=== PATIENT | female | born 1945 | race Caucasian/White ===

== ENCOUNTER → 2017-01-12 | Outpatient (CLI) | payer MEDICARE, BC ==
[2017-01-12 08:45] LABS: EKG EKG PERFORMED
[2017-01-12 10:04] LABS: Appearance,Urine Clear (Clear); Bilirubin,Urine Negative (Negative); Glucose,Urine (UA) Negative (Negative); Ketones,Urine Negative (Negative); Leukocyte Esterase,Urine Negative (Negative); Nitrite,Urine Negative (Negative); PH, Urine 6.5 (5.0-8.0); Protein,Urine Negative (Negative); Specific Gravity,Urine 1.005 (1.001-1.035); UA Billing (MACRO vs. MICRO) CHEM; Urobilinogen,Urine <2.0 mg/dL (<2.0)
[2017-01-12 10:17] LABS: Aty Lym Flag Slight; CH 30.6; CHCM 32.2; HCT 41.2 % (34.0-46.0); HDW 2.47; HGB 13.3 gm/dL (11.4-16.0); MCH 30.9 pg (25.0-35.0); MCHC 32.3 g/dL (31.0-37.0); MCV 95.6 fL (80.0-100.0); Mean Platelet Volume 6.8; RBC 4.31 m/uL (3.80-5.40); RDW 13.3 % (11.5-15.5); WBC 4.6 k/uL (3.8-10.6); WBC (Perox) 5.26
[2017-01-12 10:32] LABS: INR 1.1 (<1.1); Partial Thromboplastin Time 23.4 sec (22.0-30.0); Prothrombin Time 10.7 sec (9.0-12.0)
[2017-01-12 10:40] LABS: ALT 28 U/L (9-52); AST 20 U/L (14-36); Alkaline Phosphatase 56 U/L (38-126); Anion Gap 12 mmol/L; Blood Urea Nitrogen 17 mg/dL (7-17); Calcium 9.5 mg/dL (8.4-10.2); Carbon Dioxide 28 mmol/L (22-30); Chloride 104 mmol/L (98-107); Glucose 84 mg/dL (74-99); Non-African American GFR(MDRD) >60 (>60 ml/min/1.73 sqM); Potassium 4.7 mmol/L (3.5-5.1); Sodium 144 mmol/L (137-145); Total Bilirubin 0.5 mg/dL (0.2-1.3); Total Protein 7.1 g/dL (6.3-8.2)
[2017-01-12 11:41] LABS: Add Differential Manual Differential
[2017-01-12 11:42] LABS: Nucleated Red Blood Cells 0 /100 WBC (0-0); Total Cells Counted 100
[2017-01-12 11:43] LABS: Manual Review Performed; RBC Morphology Normal
== END ==
LOC: LABPAT 08:34
PROVIDERS: ATTEND Orthopaedic Surgery
DX: Z01.810 Encounter for preprocedural cardiovascular examination (principal); Z01.812 Encounter for preprocedural laboratory examination
CPT/HCPCS: 80053; 81003; 85025; 85610; 85730; 87070; 93005

== ENCOUNTER 2017-01-27 07:25 | Inpatient (IN) | payer MEDICARE, BC ==
[2017-01-21 14:30] VITALS: BMI 30.2
[~2017-01-27 07:25] MED LIST: ACETAMINOPHEN TAB 500 MG TAB PO ONE; DEXAMETHASONE SOD PHOSPHATE 10 MG/ML 1 ML VIAL IV ONE; HYDROmorphone 1 MG/ML 1 ML SYRINGE IVP PRN; MELOXICAM 7.5 MG TAB PO ONE; MIDAZOLAM 2 MG/2 ML VIAL IV PRN; ONDANSETRON 4 MG/2 ML VIAL IVP ONE; TRANEXAMIC ACID 1,000 MG in SODIUM CHLORIDE 0.9% 100 ML IVPB ONE; ceFAZolin 2 GM in SODIUM CHLORIDE 0.9% 100 ML IVPB ONE
[2017-01-27] MEDS: LACTATED RINGERS 1,000 ML IV SCH ×2 (08:02→23:54)
[2017-01-27] MEDS ORDERED: LIDOCAINE 1% 20 ML VIAL (10MG/ML) FOR IV START INTRADERMA ONE (08:02)
[2017-01-27] MEDS ORDERED: fentaNYL (PF) 50 MCG/ML 2 ML AMP IV ONE (08:22)
[2017-01-27] MEDS ORDERED: ROPIVACAINE 1,100 MG, SODIUM CHLORIDE 0.9% 330 ML MISCELLANE PRN ×2 (08:46)
--- NOTE | 2017-01-27 08:49 | P.ONQ ---
Anesthesiology Proc Note - PNB - Peripheral Nerve Block Performed Left Adductor Canal Infusion Time Out Performed: Yes Indication: Acute Post-Operative Pain, Analgesia Sedation Type: Sedate with meaningful contact maintained Preparation: Sterile Prep Position: Supine Catheter Depth at Skin (cm): 8 Catheter: Indwelling Needle Types: On-Q Needle Size: 100mm (4") Needle Gauge: 20 Technique: Ultrasound Injectate: 0.5% Ropivacaine (see comment for volume) (20 cc) Blood Aspirated: No Pain Paresthesia on Injection Noted: No Resistance on Injection: Normal Events: Uneventful and Well Tolerated
[2017-01-27] MEDS ORDERED: ROPIVACAINE 246.25 MG, EPINEPHrine 0.5 MG, KETOROLAC 30 MG, cloNIDine HCL/PF 80 MCG, WA... MISCELLANE ONE ×5 (09:13)
[2017-01-27] MEDS ORDERED: fentaNYL (PF) 50 MCG/ML 2 ML AMP ONE (09:42)
[2017-01-27] MEDS ORDERED: MIDAZOLAM 2 MG/2 ML VIAL ONE (09:42)
[2017-01-27] MEDS ORDERED: ePHEDrine 50 MG/ML 1 ML AMP ONE (09:42)
[2017-01-27] MEDS ORDERED: GLYCOPYRROLATE 0.2 MG/ML 2 ML VIAL ONE (09:42)
[2017-01-27] MEDS ORDERED: SUCCINYLCHOLINE CHLORIDE 100 MG/5 ML SYR IV ONE (09:42)
[2017-01-27] MEDS ORDERED: NEOSTIGMINE 1 MG/ML 10 ML VIAL ONE (09:42)
[2017-01-27] MEDS ORDERED: LIDOCAINE 1% INJ 10MG/ML (20 ML MDV) ONE (09:42)
[2017-01-27] MEDS ORDERED: ONDANSETRON 4 MG/2 ML VIAL ONE (09:42)
[2017-01-27] MEDS ORDERED: ROCURONIUM BROMIDE 10 MG/ML 10 ML VIAL IV ONE (09:42)
[2017-01-27] MEDS ORDERED: PROPOFOL 10 MG/ML 20 ML VIAL IV ONE (09:42)
[2017-01-27] MEDS ORDERED: ceFAZolin 3,000 MG in SODIUM CHLORIDE 0.9% IRRIGATIO 3,000 ML IRRIGATION ONE (10:02)
[2017-01-27] MEDS ORDERED: LACTATED RINGERS 1,000 ML IV ONE (10:30)
[2017-01-27] MEDS ORDERED: NA PHOS,M-B/NA PHOS,DI-BA 133 ML ENEMA RECTAL PRN (11:29)
[2017-01-27] MEDS ORDERED: hydrOXYzine PAMOATE 25 MG CAP PO PRN (11:29)
[2017-01-27] MEDS ORDERED: HYDROmorphone 1 MG/ML 1 ML SYRINGE IVP PRN ×3 (11:29)
[2017-01-27] MEDS ORDERED: NALOXONE 0.4 MG/ML 1 ML VIAL IV PRN (11:29)
[2017-01-27] MEDS ORDERED: MAGNESIUM HYDROXIDE 2,400 MG/10 ML CUP PO PRN (11:29)
[2017-01-27] MEDS ORDERED: ONDANSETRON 4 MG/2 ML VIAL IVP PRN (11:29)
[2017-01-27] MEDS ORDERED: BISACODYL 10 MG SUPP RECTAL PRN (11:29)
[2017-01-27] MEDS ORDERED: DIAZEPAM 5 MG TAB PO PRN ×2 (11:29)
[2017-01-27] MEDS ORDERED: ROPIVACAINE 5 MG/ML 30 ML VIAL MISCELLANE ONE (11:51)
--- NOTE | 2017-01-27 12:33 | P.OP ---
Date of Procedure: 01/27/17 Preoperative Diagnosis: Severe osteoarthritis left knee Postoperative Diagnosis: Severe osteoarthritis left knee Procedure(s) Performed: Left total knee arthroplasty Implants: Gu[employer]án [employer] Oxinium femoral component size 4, left Guzmán [employer]hew Cindy II left nonporous tibial baseplate size 4 [employer]hew size 11 mm Legion XLPE high flexion articular insert, size 3-4 [employer] Cindy II resurfacing patellar component, 29 mm All components were cemented using Anish bone cement.. The articulation is ceramic on polyethylene. Anesthesia: spinal Surgeon: Domingo Gerardo Clerical Stock Inspector #1: Batsheva Hinojosa Clerical Stock Inspector #2: Cynthia Doan Estimated Blood Loss (ml): 125 Pathology: other (Bone and cartilage) Condition: stable Disposition: PACU Indications for Procedure: After failure of conservative treatment we discussed the surgical and nonsurgical treatment options at length. Patient wishes to proceed with a total knee arthroplasty. Complications specific to this procedure were discussed at length, including but not limited to infection, bleeding, stiffness , and nerve injury. Patient is aware of all these complications and informed consent was obtained Operative Findings: The operative findings are consistent with severe osteoarthritis the left knee Description of Procedure: Patient was seen in the preoperative area consent was reviewed and operative site was marked with a skin marker. An adductor canal pain catheter was placed by anesthesia in the preoperative area. Patient was then brought to the operating room and given preoperative antibiotics intravenously. A spinal anesthetic was administered by the anesthesia department. A tourniquet was placed on the upper thigh and the lower extremity was prepped and draped in usual sterile fashion. A gram of transexamic acid was given. A universal timeout was then performed which confirmed the patient's name, surgical site, ALLERGIES, and consent. The lower extremity was then exsanguinated and tourniquet was inflated to 250 mmHg. A standard and anterior midline approach to the knee was performed. The skin and subcutaneous tissue was dissected down to the patellar tendon. A medial parapatellar arthrotomy was then performed. The knee was then extended, the patellar was everted, and the knee was again flexed. Anterior horns of both menisci were excised, and a release was performed to the posterior medial aspect of the knee. On gross visual inspection, there was complete loss of articular cartilage in the medial and patellofemoral joint spaces. There was also significant cartilage damage in the lateral compartment. There were multiple periarticular osteophytes which were then removed with a Ronguer. The femoral canal was then opened with the appropriate drill, and the intramedullary femoral cutting guide was then placed and set for 4 of valgus. The distal femoral cutting block was then pinned in place, and the distal femur was then cut. The cutting block was then removed and the cut was checked for flatness. Next, the sizing guide was then placed and set for 3 external rotation based off of the epicondylar axis and Whitesides line. After the femur was sized, the appropriate 4-in-1 cutting block was then pinned in place. The anterior condyles were cut without notching. The posterior and chamfer cuts were performed while protecting the collateral ligaments. The cutting block was then removed, and the femoral canal was plugged with autologous bone. Attention was then directed to the tibia. The remaining ACL was removed with a Ronguer, and the tibia was then gently subluxed forward with a large bent knee retractor. Any remaining menisci was excised. The posterior lateral corner was cauterized in order to cauterize the lateral geniculate artery. The extra medullary tibial cutting guide was then placed, set for the appropriate rotation , slope, and depth of resection. The proximal tibia cutting guide was then pinned in place. Proximal tibia was then cut and sized. Next trials were then placed with the appropriate-sized insert. The knee was able to fully extend and flex to 130 and was stable throughout all range of motion. The knee was then extended, patella everted. Patella was then measured, and then using an osteotomy guide, the patella was cut at the appropriate level. The patella was then measured and drilled and the patella trial was then placed. The knee was then taken through range of motion with the patella trial and the patella tracked normally. The knee was then extended patella trial was then removed and the patella was everted. Knee was then flexed and lug holes were drilled through the femoral trial and the femoral trial was then removed. The tibial was then exposed, and the tibial broach guide was then pinned in place after it was set for the appropriate rotation to allow for the most coverage without overhang. The tibia was then reamed and broached. The cut surfaces of bone were then irrigated with pulsatile lavage. The posterior structures were injected with the ropivacaine solution. The knee was also irrigated with Irrisept solution. The components were then opened, the cement was mixed, and the components were then cemented in place. The cement was allowed to harden with the knee in full extension. While the cement was hardening, the remaining soft tissues were then injected with a ropivacaine solution, which consisted of 246.25 mg of ropivacaine, 0.5 mg of epinephrine, 30 mg of Toradol, 80 g of clonidine, and 48.45 mL of sterile water, for a total of 100 mL of fluid injected. After the cemented hardened. The tourniquet was released, and hemostasis was obtained. A second gram of transexamic acid was given. The knee was again irrigated. The knee was again taken through range of motion and found to be stable throughout all range of motion of 0-130 , and the patella tracked normally. The fascia was then closed with #2 strata fix suture. The subcutaneous tissue was closed with 3-0 Vicryl and 3-0 strata fix. Dermabond tape was used for the skin and placed with the knee in flexion. The patient was placed in a sterile dressing. Patient was then transferred to recovery room in stable condition. The recreational assistant COLEEN Dacosta was required due the complexity surgery and the need for a skilled operating room surgical technician. She assisted in positioning, draping , retraction, and closure of the wound.
--- NOTE | 2017-01-27 12:43 | XR ---
Limited left knee HISTORY: Status post left knee arthroplasty 2 views of the left knee No comparisons Bone mineralization mildly reduced. Patient is status post left knee arthroplasty. There is anatomic alignment. Lucency in the soft tissues compatible with postop state. IMPRESSION: Orthopedic follow-up
[2017-01-27] MEDS: ceFAZolin 2 GM in SODIUM CHLORIDE 0.9% 100 ML IVPB SCH ×2 (15:44→23:37)
[2017-01-27] MEDS: SODIUM CHLORIDE 0.9% 1,000 ML IV SCH (15:48)
[2017-01-27] MEDS: SENNOSIDES-DOCUSATE SODIUM 1 EACH TAB PO SCH (21:06)
[2017-01-27] MEDS: ASPIRIN 325 MG TAB PO SCH (21:06)
[2017-01-27] MEDS: HYDROcodone/APAP 5-325MG 1 EACH TAB PO PRN (23:36)
[2017-01-28] MEDS: SODIUM CHLORIDE 0.9% 1,000 ML IV SCH ×2 (03:50→17:42)
[2017-01-28 07:51] LABS: Basophils % (A) 0 %; CH 30.8; CHCM 32.8; Eosinophils % (A) 1 %; HCT 30.9 % (34.0-46.0); HDW 2.52; Luc # (Auto) 0.11; Luc % (Auto) 2; Lymphocytes # (A) 0.4 k/uL (1.0-4.8); Lymphocytes % (A) 7 %; MCH 31.6 pg (25.0-35.0); MCHC 33.5 g/dL (31.0-37.0); MCV 94.3 fL (80.0-100.0); Mean Platelet Volume 6.6; Monocytes # (A) 0.6 k/uL (0-1.0); Monocytes % (A) 11 %; Neutrophils # (A) 4.2 k/uL (1.3-7.7); Neutrophils % (A) 79 %; RBC 3.27 m/uL (3.80-5.40); RDW 13.3 % (11.5-15.5); WBC 5.3 k/uL (3.8-10.6); WBC (Perox) 5.35
--- NOTE | 2017-01-28 07:55 | P.PN ---
Progress Note - Text 0722 anesthesia POD 1. Patient is status post left TKR under spinal anesthesia with a left adductor canal catheter placed for postoperative pain relief. With ropivacaine 0.2% running at 8 mL per hour the patient reports a VAS of (0, 2) anteriorly with slightly more discomfort in the posterior aspect of the knee. Catheter site is clean and dry and the dressing is intact.
--- NOTE | 2017-01-28 07:58 | P.PN ---
Subjective Principal diagnosis: Status post left total knee arthroplasty This is a pleasant 71-year-old female who is status post left total knee arthroplasty. Today's postoperative day #1. Patient is seen and evaluated at bedside with Dr. Domingo Gerardo. She complains of posterior knee pain. She otherwise has no other complaints this time. She has not been up with physical therapy at this morning. Objective - Vital Signs Vital signs: Vital Signs Temp 97.6 F 01/28/17 02:07 Pulse 76 01/28/17 00:00 Resp 16 01/28/17 02:07 BP 137/67 01/27/17 23:00 Pulse Ox 93 L 01/28/17 02:07 Intake & Output 01/27/17 01/28/17 01/28/17 18:59 06:59 18:59 Intake Total 1601 940 Output Total 125 Balance 1476 940 Weight 72.575 kg Intake: IV 1601 Intake, IV Titration 940 Amount Sodium Chloride 0.9% 1, 840 000 ml @ 70 mls/hr IV . [id number] THIAGO Rx#:[id number] ceFAZolin 2 gm In Sodium 100 Chloride 0.9% 100 ml @ 100 mls/hr IVPB Q8HR THIAGO Rx#:[id number] Output: Estimated Blood Loss 125 Other: # Voids 1 - Exam The patient does not appear in acute distress. Alert and orientated 3. Dressing is clean dry and intact. Incision appears fine with no erythema or active drainage. Calf is soft and nontender. Good foot and ankle motion without difficulty. Sensation and circulatory status is intact. Assessment and Plan (1) Primary osteoarthritis of left knee Status: Acute (2) Status post left knee replacement Status: Acute Plan: 1. Continue with routine postoperative care. 2. Anticoagulation with aspirin. 3. Physical therapy and CPM today. 4. Appreciate input from medicine. 5. Anticipate discharge to home with home care likely tomorrow.
[2017-01-28 08:01] LABS: HGB 10.3 gm/dL (11.4-16.0)
[2017-01-28] MEDS ORDERED: ACETAMINOPHEN TAB 500 MG TAB PO PRN (08:41)
[2017-01-28] MEDS ORDERED: ACETAMINOPHEN TAB 325 MG TAB PO PRN (08:44)
[2017-01-28] MEDS: HYDROcodone/APAP 5-325MG 1 EACH TAB PO PRN ×5 (09:32→19:53)
[2017-01-28] MEDS: ASPIRIN 325 MG TAB PO SCH ×2 (09:32→19:53)
[2017-01-28] MEDS: MELOXICAM 7.5 MG TAB PO SCH (09:33)
[2017-01-28] MEDS ORDERED: ALBUTEROL NEBULIZED 2.5 MG/3 ML INHALATION PRN (12:00)
[2017-01-28] MEDS ORDERED: CYANOCOBALAMIN 500 MCG TAB PO SCH (12:30)
--- NOTE | 2017-01-28 16:32 | P.CONS ---
History of Present Illness - Reason for Consult Consult date: 01/28/17 Medical management - Chief Complaint Left knee osteoarthritis - History of Present Illness Patient is admitted to the hospital for elective total left knee arthroplasty. She has a past medical history noted below. I was asked to see her for medical management. She does not have any specific concerns or complaints. Pain is well controlled. She was up earlier with physical therapy was no difficulty. Review of Systems Review of system: 14 points review of systems were obtained and were negative except to what were mentioned in the HPI. Past Medical History Past Medical History: Asthma, Hypertension Additional Past Medical History / Comment(s): Anemia,nonHodgkin's lymphoma, steroid Nov 2016 History of Any Multi-Drug Resistant Organisms: None Reported Past Surgical History: Back Surgery, Hysterectomy, Orthopedic Surgery Additional Past Surgical History / Comment(s): recent EGD/colonoscopy, right shoulder repair Past Anesthesia/Blood Transfusion Reactions: No Reported Reaction Additional Past Anesthesia/Blood Transfusion Reaction / Comm: no hx blood transfusion Past Psychological History: No Psychological Hx Reported Smoking Status: Never smoker Past Alcohol Use History: None Reported Past Drug Use History: None Reported - Past Family History Father Additional Family Medical History / Comment(s): emphysema Mother Family Medical History: No Reported History Medications and Allergies Home Medications Medication Instructions Recorded Confirmed Type Albuterol Inhaler [Ventolin 2 puff INHALATION RT-Q6H PRN 05/23/15 01/27/17 History Inhaler] Atenolol [Tenormin] 25 mg PO QAM 06/22/15 01/27/17 History Cyanocobalamin [Vitamin B-12] 500 mcg PO DAILY@1200 06/22/15 01/27/17 History Acetaminophen [Tylenol] 1,000 mg PO Q6H PRN 01/21/17 01/27/17 History Aspirin 81 mg PO DAILY 01/21/17 01/27/17 History Multivitamins, Thera [Multivitamin 1 tab PO DAILY 01/21/17 01/27/17 History (formulary)] Rituxan Infusion 1 applicate IV Q90D 01/21/17 01/27/17 History Allergies Allergy/AdvReac Type Severity Reaction Status Date / Time No Known Allergies Allergy Verified 01/27/17 07:52 Physical Exam Vitals: Vital Signs Temp Pulse Resp BP Pulse Ox 01/28/17 15:00 98.1 F 86 16 141/67 97 01/28/17 07:00 98.6 F 79 16 135/71 96 01/28/17 02:07 97.6 F 16 93 L 01/28/17 00:00 76 18 01/27/17 23:00 98.5 F 76 18 137/67 Intake and Output 01/28/17 01/28/17 01/28/17 06:59 14:59 22:59 Intake Total 940 360 Balance 940 360 Intake: Intake, IV Titration 940 Amount Sodium Chloride 0.9% 1, 840 000 ml @ 70 mls/hr IV . [id number] THIAGO Rx#:[id number] ceFAZolin 2 gm In Sodium 100 Chloride 0.9% 100 ml @ 100 mls/hr IVPB Q8HR THIAGO Rx#:[id number] Oral 360 Other: # Voids 1 General: The patient is awake and alert, in no distress Eye: there is normal conjunctiva bilaterally. Neck: The neck is supple, there is no JVD. Cardiovascular: Normal S1-S2, no S3-S4, no murmurs. Respiratory: Lungs clear to auscultation bilaterally Gastrointestinal: Abdomen is soft, nontender Musculoskeletal: There is no pedal edema. Neurological:. Speech is normal. Skin: Skin is warm and dry Results CBC & Chem 7: 01/28/17 07:09 Labs: Abnormal Lab Results - Last 24 Hours (Table) 01/28/17 Range/Units 07:09 RBC 3.27 L (3.80-5.40) m/uL Hgb 10.3 L D (11.4-16.0) gm/dL Hct 30.9 L (34.0-46.0) % Plt Count 140 L (150-450) k/uL Lymphocytes # 0.4 L (1.0-4.8) k/uL Assessment and Plan Plan: 1. Postoperative day #1 status post total left knee arthroplasty 2. DVT prophylaxis with full dose aspirin twice daily per orthopedic protocol 3. Physical debility, continue to work with PT/OT as tolerated 4. Essential hypertension: Blood pressure well-controlled Today, I reviewed her medication list and lab work results. Continue current regimen. Thank you very much for the consultation. I will continue to follow up on the patient closely.
[2017-01-28] MEDS: SENNOSIDES-DOCUSATE SODIUM 1 EACH TAB PO SCH (19:53)
[2017-01-29] MEDS: HYDROcodone/APAP 5-325MG 1 EACH TAB PO PRN ×2 (02:52→08:45)
[2017-01-29 03:09] VITALS: RESP 16
[2017-01-29] MEDS: LACTATED RINGERS 1,000 ML IV SCH (06:22)
--- NOTE | 2017-01-29 07:57 | P.PN ---
Progress Note - Text The patient is status post left adductor canal catheter placement. The catheter was placed for postoperative pain control, status post total left arthroplasty. Ropivacaine 0.2% is infusing at 10 mLs per hour. The patient has no complaints of left lower extremity numbness or weakness. Patient's VAS score is 2-10. Assessment: Patient's adductor canal catheter is in place and working appropriately. Plan: continue infusion and adjust it as needed.
[2017-01-29 08:12] VITALS: BP 130/63; PULSE 92; TEMP 97.6
[2017-01-29] MEDS: SODIUM CHLORIDE 0.9% 1,000 ML IV SCH (08:24)
[2017-01-29] MEDS: MELOXICAM 7.5 MG TAB PO SCH (08:46)
[2017-01-29] MEDS: ASPIRIN 325 MG TAB PO SCH (08:46)
--- NOTE | 2017-01-29 08:47 | P.DS ---
Providers Date of admission: 01/27/17 07:25 Expected date of discharge: 01/29/17 Attending physician: Domingo Gerardo Consults: 01/27/17 11:29 Consult Physician Routine Consulting Provider: Beena Savage Consult Reason/Comments: medical management Do you want consulting provider notified?: Yes Primary care physician: Stated None - Discharge Diagnosis(es) (1) Primary osteoarthritis of left knee Current Visit: Yes Status: Acute (2) Status post left knee replacement Current Visit: Yes Status: Acute Hospital Course: This is a 71-year-old female with known history of degenerative arthritis of the left knee. The patient presents for evaluation. After discussion and consideration patient elects to proceed with total knee arthroplasty. The patient is seen preoperatively by Dr. Gerardo and cleared for surgery. Patient is admitted to [facility] on 01/27/2017 for total knee arthroplasty. The procedures performed without complication or sequelae. The patient is doing well postoperatively. Labs and vital signs are stable on day of discharge. On day of discharge patient's knee incision is healing well. There is minimal erythema. There is no drainage noted at this time. There is minimal soft tissue swelling to the knee. Patient has full foot and ankle motion without difficulty or pain. Neurovascular status to the left lower extremity is intact. Patient is discharged home in good condition. Please see med rec for accurate list of home medications. Plan - Discharge Summary New Discharge Prescriptions: Aspirin 325 mg PO BID #60 tab Hydrocodone/Acetaminophen [Savage 5-325] 1 - 2 each PO Q6HR PRN #90 tab PRN Reason: Pain Sennosides-Docusate Sodium [Senokot-S] 2 tab PO DAILY #60 tablet Discharge Medication List Albuterol Inhaler [Ventolin Inhaler] 2 puff INHALATION RT-Q6H PRN 05/23/15 [ History] Atenolol [Tenormin] 25 mg PO QAM 06/22/15 [History] Cyanocobalamin [Vitamin B-12] 500 mcg PO DAILY@1200 06/22/15 [History] Acetaminophen [Tylenol] 1,000 mg PO Q6H PRN 01/21/17 [History] Aspirin 81 mg PO DAILY 01/21/17 [History] Multivitamins, Thera [Multivitamin (formulary)] 1 tab PO DAILY 01/21/17 [History ] Rituxan Infusion 1 applicate IV Q90D 01/21/17 [History] Aspirin 325 mg PO BID #60 tab 01/28/17 [Rx] Hydrocodone/Acetaminophen [Savage 5-325] 1 - 2 each PO Q6HR PRN #90 tab 01/28/17 [Rx] Sennosides-Docusate Sodium [Senokot-S] 2 tab PO DAILY #60 tablet 01/28/17 [Rx] Follow up Appointment(s)/Referral(s): [facility], [NON-STAFF] - 1 Week Domingo Gerardo DO [Doctor of Osteopathic Medicine] - 2 Weeks Ambulatory/Diagnostic Orders: Continuous Passive Motion (CPM) Machine [DME.AMB1] Location: Determined By Patient Activity/Diet/Wound Care/Special Instructions: Weightbearing as tolerated with a walker CPM daily Daily dressing changes, keep incision clean and dry [facility] with questions or concerns [phone] Discharge Disposition: HOME WITH HOME HEALTH SERVICES
[2017-01-29] MEDS ORDERED: ATENOLOL 25 MG TAB PO SCH (09:00)
== END 2017-01-29 13:40 | disposition home or self-care (01) | DRG 470 ==
LOC: 2ORMAIN 07:25 → 3SUR 11:32
PROVIDERS: ADMIT Orthopaedic Surgery; ATTEND Orthopaedic Surgery
PROC: 0SRD0J9 Replacement of Left Knee Joint with Synthetic Substitute, Cemented, Open Approach (ICD-10-PCS; principal; 2017-01-27 09:15)
DX: M17.12 Unilateral primary osteoarthritis, left knee (principal); I10 Essential (primary) hypertension; J45.909 Unspecified asthma, uncomplicated; Z79.82 Long term (current) use of aspirin; Z85.72 Personal history of non-Hodgkin lymphomas; Z79.899 Other long term (current) drug therapy
CPT/HCPCS: 85025; 88300

== ENCOUNTER 2018-01-28 14:50 | Emergency (ER) | payer MEDICARE, BC ==
[2018-01-28] MEDS ORDERED: METOCLOPRAMIDE 5 MG/ML 2 ML VIAL IVP STA (16:31)
[2018-01-28] MEDS ORDERED: SODIUM CHLORIDE 0.9% 1,000 ML IV STA (16:31)
--- NOTE | 2018-01-28 16:37 | ED ---
Abdominal Pain HPI - General Chief Complaint: Abdominal Pain Stated Complaint: Weakness Time Seen by Provider: 01/28/18 16:05 Source: patient, RN notes reviewed Mode of arrival: wheelchair Limitations: no limitations - History of Present Illness Initial Comments: This a 72-year-old female presents emergency Department chief complaint abdominal discomfort, bloating distention. Patient states she feels constipated has not been able to have a bowel movement For 1 week. She has tried to Dulcolax, MiraLAX, suppositories no relief. She states that the prior week she was treated for pneumonia and influenza with Tamiflu on Bactrim. She states that feels improved with states all dominant. She has had a prior hysterectomy. Patient denies any dysuria or hematuria. She did say that prior taken the laxatives that she had small hard stool but now she says stool colored liquid and some mucus. She has a history of diverticulitis. Patient denies any known fevers or chills. She has meant to some nausea. - Related Data Home Medications Medication Instructions Recorded Confirmed Atenolol [Tenormin] 25 mg PO QAM 06/22/15 01/28/18 Ascorbic Acid [Vitamin C] 500 mg PO DAILY 01/28/18 01/28/18 Aspirin [Adult Low Dose Aspirin EC] 81 mg PO DAILY 01/28/18 01/28/18 Bisacodyl [Dulcolax] 10 mg PO ONCE PRN 01/28/18 01/28/18 Cholecalciferol [Vitamin D3] 1,000 unit PO DAILY 01/28/18 01/28/18 Glycerin Adult Suppository 1 each RECTAL ONCE PRN 01/28/18 01/28/18 Polyethylene Glycol 3350 [Miralax] 17 gm PO ONCE PRN 01/28/18 01/28/18 Sulfamethox-Tmp 800-160Mg [Bactrim 1 tab PO Q12HR 01/28/18 01/28/18 DS 800-160 mg] Allergies Allergy/AdvReac Type Severity Reaction Status Date / Time No Known Allergies Allergy Verified 01/28/18 16:58 Review of Systems ROS Statement: Those systems with pertinent positive or pertinent negative responses have been documented in the HPI. ROS Other: All systems not noted in ROS Statement are negative. Past Medical History Past Medical History: Cancer Additional Past Medical History / Comment(s): Anemia, non-hodgkins lymphoma History of Any Multi-Drug Resistant Organisms: None Reported Past Surgical History: Joint Replacement Additional Past Surgical History / Comment(s): recent EGD/colonoscopy, right shoulder surg. Past Anesthesia/Blood Transfusion Reactions: No Reported Reaction Additional Past Anesthesia/Blood Transfusion Reaction / Comment(s): no hx blood transfusion Past Psychological History: No Psychological Hx Reported Smoking Status: Never smoker Past Alcohol Use History: None Reported Past Drug Use History: None Reported - Past Family History Father Additional Family Medical History / Comment(s): emphysema Mother Family Medical History: No Reported History General Exam Limitations: no limitations General appearance: alert, in no apparent distress Head exam: Present: atraumatic, normocephalic, normal inspection Respiratory exam: Present: normal lung sounds bilaterally. Absent: respiratory distress, wheezes, rales, rhonchi, stridor Cardiovascular Exam: Present: regular rate, normal rhythm, normal heart sounds. Absent: systolic murmur, diastolic murmur, rubs, gallop, clicks GI/Abdominal exam: Present: soft, distended, tenderness (Mild diffuse), normal bowel sounds. Absent: guarding, rebound, rigid Back exam: Absent: CVA tenderness (R), CVA tenderness (L) Skin exam: Present: warm, dry, intact, normal color. Absent: rash Course Vital Signs 01/28/18 01/28/18 01/28/18 14:55 16:30 18:33 Temperature 98.5 F 97.6 F 98.3 F Pulse Rate 79 74 81 Respiratory 20 18 18 Rate Blood Pressure 150/82 145/71 143/70 O2 Sat by Pulse 98 97 98 Oximetry - Reevaluation(s) Reevaluation #1: 01/28/18 19:14 Patient and family were updated regarding results including CT and labs. This felt that the patient's symptoms related to constipation patient was offered enema at this time and she does agree. Reevaluation #2: 01/28/18 20:26 Patient had enema had 2 large bowel movement states that she feels much better at this time. 01/28/18 20:26 Medical Decision Making - Medical Decision Making 72-year-old female presents from for abdominal pain. Patient was found to be constipated. Lab work CT were performed. Patient was given enema had large bowel movement states that she feels improved. Patient be discharged advised increased fluids, take daily fiber and return for any worsening symptoms. - Lab Data Result diagrams: 01/28/18 16:30 01/28/18 16:30 Lab Results 01/28/18 01/28/18 01/28/18 Range/Units 16:30 16:30 16:30 WBC 8.1 (3.8-10.6) k/uL RBC 4.89 (3.80-5.40) m/uL Hgb 14.5 (11.4-16.0) gm/dL Hct 43.0 (34.0-46.0) % MCV 87.9 (80.0-100.0) fL MCH 29.6 (25.0-35.0) pg MCHC 33.7 (31.0-37.0) g/dL RDW 13.4 (11.5-15.5) % Plt Count 285 (150-450) k/uL Neutrophils % 84 % Lymphocytes % 7 % Monocytes % 6 % Eosinophils % 2 % Basophils % 0 % Neutrophils # 6.9 (1.3-7.7) k/uL Lymphocytes # 0.5 L (1.0-4.8) k/uL Monocytes # 0.5 (0-1.0) k/uL Eosinophils # 0.1 (0-0.7) k/uL Basophils # 0.0 (0-0.2) k/uL PT (9.0-12.0) sec INR (<1.2) APTT (22.0-30.0) sec Sodium 136 L (137-145) mmol/L Potassium 4.6 (3.5-5.1) mmol/L Chloride 100 (98-107) mmol/L Carbon Dioxide 21 L (22-30) mmol/L Anion Gap 15 mmol/L BUN 14 (7-17) mg/dL Creatinine 0.80 (0.52-1.04) mg/dL Est GFR (CKD-EPI)AfAm 84 (>60 ml/min/1.73 sqM) Est GFR (CKD-EPI)NonAf 73 (>60 ml/min/1.73 sqM) Glucose 112 H (74-99) mg/dL Plasma Lactic Acid Bruno 1.1 (0.7-2.0) mmol/L Calcium 9.7 (8.4-10.2) mg/dL Total Bilirubin 0.5 (0.2-1.3) mg/dL AST 24 (14-36) U/L ALT 28 (9-52) U/L Alkaline Phosphatase 72 (38-126) U/L Total Protein 7.1 (6.3-8.2) g/dL Albumin 4.5 (3.5-5.0) g/dL Amylase 265 H (30-110) U/L Lipase 54 (23-300) U/L 01/28/18 Range/Units 16:30 WBC (3.8-10.6) k/uL RBC (3.80-5.40) m/uL Hgb (11.4-16.0) gm/dL Hct (34.0-46.0) % MCV (80.0-100.0) fL MCH (25.0-35.0) pg MCHC (31.0-37.0) g/dL RDW (11.5-15.5) % Plt Count (150-450) k/uL Neutrophils % % Lymphocytes % % Monocytes % % Eosinophils % % Basophils % % Neutrophils # (1.3-7.7) k/uL Lymphocytes # (1.0-4.8) k/uL Monocytes # (0-1.0) k/uL Eosinophils # (0-0.7) k/uL Basophils # (0-0.2) k/uL PT 10.3 (9.0-12.0) sec INR 1.0 (<1.2) APTT 23.0 (22.0-30.0) sec Sodium (137-145) mmol/L Potassium (3.5-5.1) mmol/L Chloride (98-107) mmol/L Carbon Dioxide (22-30) mmol/L Anion Gap mmol/L BUN (7-17) mg/dL Creatinine (0.52-1.04) mg/dL Est GFR (CKD-EPI)AfAm (>60 ml/min/1.73 sqM) Est GFR (CKD-EPI)NonAf (>60 ml/min/1.73 sqM) Glucose (74-99) mg/dL Plasma Lactic Acid Bruno (0.7-2.0) mmol/L Calcium (8.4-10.2) mg/dL Total Bilirubin (0.2-1.3) mg/dL AST (14-36) U/L ALT (9-52) U/L Alkaline Phosphatase (38-126) U/L Total Protein (6.3-8.2) g/dL Albumin (3.5-5.0) g/dL Amylase (30-110) U/L Lipase (23-300) U/L Disposition Clinical Impression: Abdominal pain, Constipation Disposition: HOME SELF-CARE Condition: Stable Instructions: Constipation (ED) Additional Instructions: Please return to the Emergency Department if symptoms worsen or any other concerns. Is patient prescribed a controlled substance at d/c from ED?: No Referrals: Lou Turk MD [Primary Care Provider] - 1-2 days Time of Disposition: 20:27
[2018-01-28 16:52] LABS: Basophils % (A) 0 %; Eosinophils # (A) 0.1 k/uL (0-0.7); Eosinophils % (A) 2 %; HGB 14.5 gm/dL (11.4-16.0); Lymphocytes # (A) 0.5 k/uL (1.0-4.8); Lymphocytes % (A) 7 %; MCH 29.6 pg (25.0-35.0); MCHC 33.7 g/dL (31.0-37.0); MCV 87.9 fL (80.0-100.0); Mean Platelet Volume 6.7; Monocytes # (A) 0.5 k/uL (0-1.0); Monocytes % (A) 6 %; Neutrophils # (A) 6.9 k/uL (1.3-7.7); Neutrophils % (A) 84 %; Platelet Count 285 k/uL (150-450); RBC 4.89 m/uL (3.80-5.40); RDW 13.4 % (11.5-15.5); WBC 8.1 k/uL (3.8-10.6)
[2018-01-28 16:57] VITALS: RESP 18
[2018-01-28 17:00] LABS: Albumin 4.5 g/dL (3.5-5.0); Calcium 9.7 mg/dL (8.4-10.2); Potassium 4.6 mmol/L (3.5-5.1); Total Bilirubin 0.5 mg/dL (0.2-1.3); Total Protein 7.1 g/dL (6.3-8.2)
[2018-01-28 17:01] LABS: Prothrombin Time 10.3 sec (9.0-12.0)
[2018-01-28] MEDS ORDERED: RX INFO: IV CONTRAST WAS GIVEN 1 EACH MISC MISCELLANE PRN (17:18)
[2018-01-28] MEDS ORDERED: ONDANSETRON 4 MG/2 ML VIAL IVP STA (18:21)
[2018-01-28] MEDS ORDERED: DICYCLOMINE 10 MG/ML 2 ML AMP IM STA (18:21)
--- NOTE | 2018-01-28 18:29 | CT ---
EXAMINATION TYPE: CT abdomen pelvis w con DATE OF EXAM: 01/28/2018 COMPARISON: 07/20/2015 INDICATION: Abdominal pain with distention DLP: 651.5 mGycm, Automated exposure control for dose reduction was used. CONTRAST: 100 mL of Isovue 300. Study performed without Oral Contrast TECHNIQUE: Axial images were obtained from above the diaphragm to the pubic rami in the axial plane a t 5 mm thick sections. Reconstructed images are reviewed on the computer in the coronal plane. FINDINGS: Limited CT sections are obtained the lung bases. The lung bases are clear. Small hiatal hernia is p resent. CT ABDOMEN: Liver: Normal Spleen: Normal Pancreas: Normal Adrenal glands: The adrenal glands are normal. Gallbladder: Normal Kidneys: No masses are evident. No hydronephrosis is present. No cysts are present. Delayed images were obtained through the kidneys, which remain unremarkable. Aorta: Vascular calcification is within the aorta. Inferior vena cava: Normal. CT PELVIS: Loops of bowel within the abdomen and pelvis are normal. There are loops of bowel which are incom pletely distended or lack oral contrast limiting their evaluation. Sigmoid diverticulosis without acu te diverticulitis is present. Appendix: What appears to be the appendix is normal. No suspicious inflammatory changes or tubular st ructures are evident. Urinary bladder: Decompressed and cannot be evaluated. Genitourinary structures: Uterus and ovaries are not identified. No suspicious adnexal masses are jakub dent. Osseous structures: No suspicious lytic or sclerotic lesions. IMPRESSIONS: 1. Sigmoid diverticulosis without acute diverticulitis. 2. No suspicious lymphadenopathy present.
[2018-01-28 20:40] VITALS: BP 117/65; PULSE 70; TEMP 97.3
== END 2018-01-28 20:40 | disposition home or self-care (01) ==
LOC: EC 14:50
DX: K59.00 Constipation, unspecified (principal); Z79.82 Long term (current) use of aspirin; Z79.899 Other long term (current) drug therapy
CPT/HCPCS: 99284; 96374; 96375; 96361 ×4; 36415; 80053; 82150; 83605; 83690; 85025; 85610; 85730; 74177; J0500; J2765; J2405; Q9967

== ENCOUNTER → 2018-01-28 | Outpatient (CLI) | payer MEDICARE, BC ==
--- NOTE | 2018-01-28 16:24 | XR ---
2 view abdomen HISTORY: Pain, cramping and weakness 2 views of the abdomen submitted on 3 images and correlated to prior exam 02/13/2014 Lung bases are clear. Retrocardiac density is present as on prior exam. No pneumoperitoneum present. There are air-fluid levels on the upright exam without bowel distention. Retained fecal debris presen t within the colon. Scattered calcifications within the pelvis are felt likely to represent vascular calcifications. Bone mineralization is maintained. Degenerative disc changes, spinal curvature again noted within the lumbar spine. Multilevel laminectomies in the lumbar spine are noted. IMPRESSION: Findings could represent ileus or enteritis, follow-up as indicated if obstruction is katlyn pected clinically.
== END | disposition home or self-care (01) ==
LOC: RADXRMAIN 14:22
PROVIDERS: ATTEND Family Medicine
DX: K59.00 Constipation, unspecified (principal)
CPT/HCPCS: 74019

== ENCOUNTER → 2018-11-19 | Outpatient (CLI) | payer MEDICARE ==
--- NOTE | 2018-11-19 12:28 | BD ---
EXAMINATION TYPE: Axial Bone Density DATE OF EXAM: 11/19/2018 COMPARISON: NONE CLINICAL HISTORY: M 19.7. Postmenopausal female. Osteoporosis screening. Height: 60. 5 IN Weight: 163 LBS RISK FACTORS HISTORY OF: Surgery to Spine: YES L-SPINE SURGERY When: AGE 62 Active: YES Postmenopausal woman: YES AGE 44 MEDICATIONS: Additional Medications: VIT D3, CALCIUM, ATENOLOL Additional History: NON HODGEKINS LYMPHOMA WITH CHEMO AGE 70 EXAM MEASUREMENTS: Bone mineral densitometry was performed using the [employer] System. Bone mineral density about the R hip (g/cm2): 0.904 Bone mineral density about the L hip (g/cm2): 0.771 T Score values are as follows: -----R Neck: -1.0 -----L Neck: -1.9 -----R Total: -0.9 -----L Total: -0.5 Bone mineral density has: Decreased -8.6% since study of: 05/18/2012 Bone mineral density about the L Wrist (g/cm2): 0.561 T Score values are as follows: -----Dist. R+U: -2.7 -----Prox. R+U: -1.6 -----Radius total: -1.9 Bone mineral density BASELINE IMPRESSION: Osteoporosis (T Score less than -2.5). There is increased fracture risk and therapy is usually indicated based on age. Re-Screen 1-2 years. NOTE: T-SCORE=SD OF THE YOUNG ADULT MEAN.
--- NOTE | 2018-11-22 09:49 | MM ---
Reason for exam: screening (asymptomatic). Last mammogram was performed 3 years and 4 months ago. History: Patient is postmenopausal. Family history of breast cancer in cousin. Benign stereotactic core biopsy of the left breast, February 26, 2004. Cyst aspiration of the right breast, November 09, 2002. Physical Findings: A clinical breast exam by your physician is recommended on an annual basis and results should be correlated with mammographic findings. MG 3D Screening Mammo W/Cad Bilateral CC and MLO view(s) were taken. Prior study comparison: July 04, 2015, bilateral MG screening mammo w CAD. May 18, 2012, bilateral digital screening mammo w/CAD. The breast tissue is heterogeneously dense. This may lower the sensitivity of mammography. Previous mammotome biopsy in the left breast. No significant changes when compared with prior studies. ASSESSMENT: Benign, BI-RAD 2 RECOMMENDATION: Routine screening mammogram of both breasts in 1 year.
== END | disposition home or self-care (01) ==
LOC: RADMAMWWP 09:21
PROVIDERS: ATTEND Family Medicine
DX: Z12.31 Encounter for screening mammogram for malignant neoplasm of breast (principal); M81.0 Age-related osteoporosis without current pathological fracture
CPT/HCPCS: 77063; 77067; 77080

== ENCOUNTER → 2019-03-08 | Day surgery (SDC) | payer MEDICARE ==
[2019-03-02 13:32] VITALS: BMI 30.2
[~2019-03-08] MED LIST changes: -ACETAMINOPHEN TAB 500 MG TAB PO ONE; +BUPIVACAINE (PF) 0.5% 30 ML VIAL SQ ONE; +HYDROcodone/APAP 7.5-325MG 1 EACH TAB PO ONE; +HYDROmorphone 0.5 MG/0.5 ML SYRINGE IVP PRN; -HYDROmorphone 1 MG/ML 1 ML SYRINGE IVP PRN; +LACTATED RINGERS 1,000 ML IV SCH; +LIDOCAINE 1% 20 ML VIAL (10MG/ML) FOR IV START INTRADERMA PRN; +LIDOCAINE 1% INJ 10MG/ML (20 ML MDV) ONE; -MELOXICAM 7.5 MG TAB PO ONE; -MIDAZOLAM 2 MG/2 ML VIAL IV PRN; +MIDAZOLAM 2 MG/2 ML VIAL ONE; +PROPOFOL 10 MG/ML 20 ML VIAL IV ONE; +SCOPOLAMINE 1.5MG/72HR PATCH TRANSDERM ONE; -TRANEXAMIC ACID 1,000 MG in SODIUM CHLORIDE 0.9% 100 ML IVPB ONE; -ceFAZolin 2 GM in SODIUM CHLORIDE 0.9% 100 ML IVPB ONE; +ceFAZolin IN SWFI 2 GM/20 ML SYRINGE IVP ONE; +ePHEDrine SULFATE/0.9% NACL/PF 50 MG/5 ML SYRINGE IV ONE; +fentaNYL (PF) 50 MCG/ML 2 ML AMP ONE
--- NOTE | 2019-03-08 07:56 | P.OP ---
Date of Procedure: 03/08/19 Preoperative Diagnosis: Torn medial meniscus right knee Postoperative Diagnosis: 1. Torn medial meniscus right knee 2. Torn lateral meniscus right knee 3. Loose body 4. 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 Synovitis Procedure(s) Performed: 1. Arthroscopy of the right knee with partial medial meniscectomy (25% of meniscus excised) 2. Partial lateral meniscectomy (10% of the meniscus excised) 3. Removal of loose body 4. Chondroplasty of the medial femoral, lateral femoral, and patellofemoral compartments 5. Partial synovectomy of the medial femoral, lateral femoral, patellofemoral compartments Anesthesia: MAC Surgeon: Domingo Gerardo Estimated Blood Loss (ml): 5 Pathology: none sent Condition: stable Disposition: PACU Indications for Procedure: This is a 73-year-old female that was seen by me in the office for pain in her right knee. An MRI demonstrated a torn medial meniscus, as well as osteoarthritis. After discussing the surgical and nonsurgical treatment options with her at length, she wishes to proceed with arthroscopic debridement of her knee and informed consent was obtained. Operative Findings: The operative findings are consistent with a torn medial lateral meniscus, grade 2-3 chondromalacia of the medial femoral, lateral femoral, patellofemoral compartments, and synovitis. There is also an intra-articular loose body. Description of Procedure: Patient was seen and evaluated in the preoperative area, the operative site was marked with a skin marker. The patient was then brought to the operating room and given 2 g of Ancef intravenously. A general anesthetic was administered by the anesthesia department. Tourniquet was placed on the left upper thigh and the left lower extremity was then prepped and draped in usual sterile fashion. A universal timeout was then performed confirming the patient's name, surgical site, ALLERGIES, and consent. The limb was then exsanguinated and tourniquet insufflated to 250 mmHg. Standard inferior medial and inferior lateral portals were established in the knee. The trochar was inserted in the inferolateral portal. Examination began at the patellofemoral joint. There is noted to be grade 2-3 chondral malacia the patellofemoral compartment and a moderate amount of synovitis. Next the medial compartment was visualized. There was a tear of the posterior horn of the medial meniscus. There was grade 2-3 chondral malacia the mediofemoral compartment and synovitis. The notch area was then visualized and ACL PCL were intact. The Lateral compartment was then visualized. There was a tear of the lateral meniscus and grade 2-3 chondral malacia changes and a mild amount of synovitis. Next, using an arthroscopic shaver and a biter, partial medial meniscectomy was performed stable margins. Approximately 25% of meniscus was excised. A partial lateral meniscectomy was performed with proximally 10% of meniscus excised. A partial synovectomy is performed the medial femoral, lateral femoral, patellofemoral compartments. Chondroplasty was also performed of the medial femoral, lateral femoral, and patellofemoral compartments of the knee. There was also an intra-articular loose body which was removed. Knee was then copiously irrigated, instruments removed, incisions were closed with 4-0 nylon. 30 mL of quarter percent plain Marcaine were injected sterilely into the surgical area. A sterile dressing was then applied, and the tourniquet was released. Patient was then transferred to recovery room in stable condition.
[2019-03-08 07:57] VITALS: TEMP 97.9
[2019-03-08 08:45] VITALS: BP 137/84; PULSE 66; RESP 16
== END | disposition home or self-care (01) ==
LOC: OR 06:02
PROVIDERS: ATTEND Orthopaedic Surgery
DX: S83.241A Other tear of medial meniscus, current injury, right knee, initial encounter (principal); S83.281A Other tear of lateral meniscus, current injury, right knee, initial encounter; M94.261 Chondromalacia, right knee; M65.861 Other synovitis and tenosynovitis, right lower leg; M17.11 Unilateral primary osteoarthritis, right knee; Z68.30 Body mass index [BMI] 30.0-30.9, adult; J45.909 Unspecified asthma, uncomplicated; E66.9 Obesity, unspecified; I10 Essential (primary) hypertension; X58.XXXA Exposure to other specified factors, initial encounter; Z79.82 Long term (current) use of aspirin; Z79.899 Other long term (current) drug therapy; Z79.1 Long term (current) use of non-steroidal anti-inflammatories (NSAID); C85.90 Non-Hodgkin lymphoma, unspecified, unspecified site; Z97.3 Presence of spectacles and contact lenses; Z90.49 Acquired absence of other specified parts of digestive tract; Z96.652 Presence of left artificial knee joint
CPT/HCPCS: 29880; 29876; J2250; J1100; J2405; J2001; J3010; J2704; J0690

== ENCOUNTER → 2019-08-19 | Outpatient (CLI) | payer MEDICARE ==
--- NOTE | 2019-08-22 14:21 | CT ---
EXAMINATION TYPE: CT abdomen pelvis w con DATE OF EXAM: 08/19/2019 COMPARISON: 01/28/2018 HISTORY: Abdominal pain x2 months. Hx Non-Hodgkins lymphoma CT DLP: 878.70 mGycm CONTRAST: CT scan of the abdomen and pelvis is performed with Oral Contrast and with IV Contrast, patient injec katiana with 100 mL of Isovue 300. FINDINGS: LUNG BASES-: No visible nodule. No infiltrate. LIVER/GB: Suspect noncalcified gallstone. Mild hepatic steatosis.No space occupying hepatic lesion . Biliary tree is of normal caliber. PANCREAS: No inflammation. No distinct mass. SPLEEN: No splenic enlargement. No lesion seen. ADRENALS: No nodule. No thickening. KIDNEYS/BLADDER: No hydronephrosis. No nephrolithiasis. No distinct renal mass. Urinary bladder g rossly unremarkable. BOWEL: Normal appendix. Normal bowel caliber. No inflammation. Sigmoid diverticulosis without diver ticulitis. GENITAL ORGANS: No gross abnormality. LYMPH NODES: No greater than 1cm abdominal or pelvic lymph nodes are appreciated. AORTA: No significant abnormality. OSSEOUS STRUCTURES: No significant abnormality is seen. OTHER: No significant additional abnormality is seen. IMPRESSION: 1. No evidence for recurrent adenopathy. 2. Diverticulosis without diverticulitis. 3. Mild hepatic steatosis.
== END | disposition home or self-care (01) ==
LOC: RADCTMAIN 14:36
PROVIDERS: ATTEND Internal Medicine Hematology & Oncology
DX: C85.98 Non-Hodgkin lymphoma, unspecified, lymph nodes of multiple sites (principal); K57.30 Diverticulosis of large intestine without perforation or abscess without bleeding; K76.0 Fatty (change of) liver, not elsewhere classified; Z88.8 Allergy status to other drugs, medicaments and biological substances
CPT/HCPCS: 82565; 84520; 74177; 36415; Q9967 ×2

== ENCOUNTER → 2020-04-24 | Outpatient (CLI) | payer MEDICARE ==
--- NOTE | 2020-04-24 18:34 | BD ---
EXAMINATION TYPE: Axial Bone Density DATE OF EXAM: 04/24/2020 COMPARISON: NONE CLINICAL HISTORY: Height: 61 Weight: 162.5 FRAX RISK QUESTIONS: Alcohol (3 or more units per day): no Family History (Parent hip fracture): no Glucocorticoids (More than 3mos): no (Ex: prednisone, prednisolone, methylprednisolone, dexamethasone, and hydrocortisone). History of Fracture in Adulthood: no Secondary Osteoporosis: 1. Type 1 Diabetes: no 2. Hyperthyroidism: no 3. Menopause before 45: no 4. Malnutrition: no 5. Chronic liver disease: no Rheumatoid Arthritis: no Current Tobacco Use: no RISK FACTORS HISTORY OF: Surgery to Spine/Hip(right/left)/Wrist (right/left): lumbar spine 2007 Family History of Osteoporosis: yes Active: yes Diet low in dairy products/other sources of calcium: yes Postmenopausal woman: age 44 Lost more than 2 inches in height since high school: no MEDICATIONS: atenolol, ventyl Additional History: EXAM MEASUREMENTS: Bone mineral densitometry was performed using the [employer] System. Bone mineral density about the R hip (g/cm2): 0.879 Bone mineral density about the L hip (g/cm2): 0.798 T Score values are as follows: -----R Neck: -1.1 -----L Neck: -1.7 -----R Total: -0.7 -----L Total: -0.3 Bone mineral density has: increased 1.8 % since study of: 2. Bone mineral density about the R Wrist (g/cm2): 0.516 T Score values are as follows: -----Dist. R+U: -3.3 -----Prox. R+U: -2.1 -----Radius total: -2.6 Bone mineral density : baseline IMPRESSION: Osteoporosis (T Score less than -2.5). There is increased fracture risk and therapy is usually indicated based on age. Re-Screen 1-2 years. NOTE: T-SCORE=SD OF THE YOUNG ADULT MEAN.
--- NOTE | 2020-04-25 14:52 | MM ---
Reason for exam: screening (asymptomatic). Last mammogram was performed 1 year and 5 months ago. History: Patient is postmenopausal. Family history of breast cancer in cousin. Benign stereotactic core biopsy of the left breast, February 26, 2004. Cyst aspiration of the right breast, November 09, 2002. Physical Findings: A clinical breast exam by your physician is recommended on an annual basis and results should be correlated with mammographic findings. MG 3D Screening Mammo W/Cad Bilateral CC and MLO view(s) were taken. Prior study comparison: November 19, 2018, bilateral MG 3d screening mammo w/cad. July 04, 2015, bilateral MG screening mammo w CAD. There are scattered fibroglandular densities. No significant changes when compared with prior studies. ASSESSMENT: Benign, BI-RAD 2 RECOMMENDATION: Routine screening mammogram of both breasts in 1 year.
== END | disposition home or self-care (01) ==
LOC: RADMAMWWP 14:58
PROVIDERS: ATTEND Family Medicine
DX: Z12.31 Encounter for screening mammogram for malignant neoplasm of breast (principal); Z13.820 Encounter for screening for osteoporosis; M81.0 Age-related osteoporosis without current pathological fracture
CPT/HCPCS: 77063; 77067; 77080

== ENCOUNTER 2021-01-20 16:15 | Emergency (ER) | payer MEDICARE ==
--- NOTE | 2021-01-20 16:30 | ED ---
General Adult HPI - General Chief complaint: Upper Respiratory Infection Stated complaint: COVID + Time Seen by Provider: 01/20/21 16:29 Source: patient Mode of arrival: EMS Limitations: no limitations - History of Present Illness Initial comments: Patient presents the ED by ambulance for evaluation. Patient states that her oldest son tested positive for Covid 7 days ago, and she states that she has had symptoms of cough, congestion and fever for the past 6 days or so. Patient also admits to feeling mildly dyspneic and nauseated. Patient denies having any pain, headache, focal neuro deficit, sore throat, chest pain, hemoptysis, palpitations, dizziness, abdominal pain, diarrhea or constipation, dysuria or urinary symptoms, decreased urine output, leg or calf swelling or pain, or any other symptoms or complaints. Patient states that she last took a dose of Tylenol early this morning. Patient denies Covid vaccination. - Related Data Home Medications Medication Instructions Recorded Confirmed atenoloL [Tenormin] 25 mg PO QAM 06/22/15 03/08/19 Aspirin [Adult Low Dose Aspirin EC] 81 mg PO DAILY 01/28/18 03/08/19 Cholecalciferol [Vitamin D3] 5,000 unit PO DAILY 01/28/18 03/08/19 Acetaminophen Tab [Tylenol Tab] 650 mg PO Q4H PRN 12/28/18 03/08/19 Albuterol Inhaler (Mhu) [Ventolin 1 - 2 puff INHALATION RT-Q6H PRN 12/28/18 03/08/19 Hfa Inhaler] Albuterol Nebulized [Ventolin 2.5 mg INHALATION Q6H PRN 12/28/18 03/08/19 Nebulized] Ibuprofen [Motrin] 800 mg PO Q8H PRN 03/02/19 03/08/19 Previous Rx's Medication Instructions Recorded Aspirin 325 mg PO BID #28 tab 03/08/19 HYDROcodone/APAP 7.5-325MG [Lawson 1 - 2 tab PO Q6H PRN #56 tab 03/08/19 7.5-325] Sennosides [Senokot] 1 tab PO BID #60 tablet 03/08/19 Ondansetron Odt [Zofran Odt] 4 mg PO Q8HR PRN #10 tab 01/20/21 Allergies Allergy/AdvReac Type Severity Reaction Status Date / Time No Known Allergies Allergy Verified 01/20/21 16:17 Review of Systems ROS Statement: Those systems with pertinent positive or pertinent negative responses have been documented in the HPI. ROS Other: All systems not noted in ROS Statement are negative. Past Medical History Past Medical History: Asthma, Cancer, Hypertension, Osteoarthritis (OA) Additional Past Medical History / Comment(s): PAST HISTORY Anemia, non-hodgkins lymphoma, History of Any Multi-Drug Resistant Organisms: None Reported Past Surgical History: Back Surgery, Hysterectomy, Joint Replacement Additional Past Surgical History / Comment(s): EGD/colonoscopy, right shoulder surg. LEFT KNEE- TOTAL , BACK SURGERY- TUMOR REMOVED Past Anesthesia/Blood Transfusion Reactions: No Reported Reaction Additional Past Anesthesia/Blood Transfusion Reaction / Comment(s): no hx blood transfusion Past Psychological History: No Psychological Hx Reported Smoking Status: Never smoker Past Alcohol Use History: None Reported Past Drug Use History: None Reported - Past Family History Father Additional Family Medical History / Comment(s): emphysema Mother Family Medical History: No Reported History General Exam Limitations: no limitations General appearance: alert, in no apparent distress Head exam: Present: atraumatic, normocephalic Eye exam: Present: normal appearance, EOMI ENT exam: Present: mucous membranes moist Neck exam: Present: other (Trachea is in midline) Respiratory exam: Present: normal lung sounds bilaterally. Absent: respiratory distress, wheezes, rales, rhonchi, stridor Cardiovascular Exam: Present: regular rate, normal rhythm, normal heart sounds, other (Normal radial pulses bilaterally) GI/Abdominal exam: Present: soft. Absent: distended, tenderness, guarding Extremities exam: Present: other (Negative Homans sign bilaterally). Absent: tenderness, pedal edema, calf tenderness Neurological exam: Present: alert, oriented X3. Absent: motor sensory deficit Psychiatric exam: Present: normal affect, normal mood Skin exam: Present: warm, dry, intact, normal color Course Vital Signs 01/20/21 01/20/21 01/20/21 16:18 16:24 16:25 Temperature 99.9 F H Pulse Rate 91 Respiratory 18 18 Rate Blood Pressure 169/86 O2 Sat by Pulse 93 L 94 L Oximetry 01/20/21 01/20/21 17:56 20:18 Temperature 98.9 F 98.6 F Pulse Rate 77 85 Respiratory 16 18 Rate Blood Pressure 145/72 148/77 O2 Sat by Pulse 94 L 94 L Oximetry - Reevaluation(s) Reevaluation #1: 01/20/21 21:36 Patient denies development of any new symptoms while in the ED. Patient remains alert and breathing comfortably. Patient has not developed any adverse effects after monoclonal antibody infusion therapy. Patient is aware of her test results, and she feels comfortable going home at this time. Patient was counseled about Covid pneumonia and hypokalemia, and she was clearly explained return and follow-up instructions. Patient was instructed to have a low threshold for return to the ED should she develop increased shortness of breath or new or worsening symptoms. Patient feels comfortable with this plan. EKG Findings - EKG Comments: EKG Findings:: Normal sinus rhythm, ventricular rate of 88 bpm, no ectopy, normal [place] and QRS intervals, normal QT interval, normal axis, no ST or T-wave abnormality Medical Decision Making - Medical Decision Making Patient is Covid positive. Patient's d-dimer is negative. Patient's O2 sat is in the mid 90s on room air, and she is breathing comfortably in the ED. Patient meets inclusion criteria for monoclonal antibody infusion therapy. Risks and benefits were discussed with the patient, and she agreed to see if monoclonal antibody infusion therapy in the ED. Patient was also noted to be mildly hypokalemic, and she was given oral potassium chloride in the emergency department. I do not feel that any further Covid treatment or hospitalization is indicated at this time. Patient was instructed to return to the ED should she develop increased shortness of breath or new or worsening symptoms. Patient feels comfortable with this plan. - Lab Data Result diagrams: 01/20/21 16:38 01/20/21 16:38 Lab Results 01/20/21 01/20/21 01/20/21 Range/Units 16:38 16:38 16:38 WBC 2.2 L (3.8-10.6) k/uL RBC 4.28 (3.80-5.40) m/uL Hgb 12.9 (11.4-16.0) gm/dL Hct 37.4 (34.0-46.0) % MCV 87.3 (80.0-100.0) fL MCH 30.0 (25.0-35.0) pg MCHC 34.4 (31.0-37.0) g/dL RDW 13.1 (11.5-15.5) % Plt Count 101 L (150-450) k/uL MPV 7.4 Neutrophils % 71 % Lymphocytes % 20 % Monocytes % 6 % Eosinophils % 1 % Basophils % 0 % Neutrophils # 1.5 (1.3-7.7) k/uL Lymphocytes # 0.4 L (1.0-4.8) k/uL Monocytes # 0.1 (0-1.0) k/uL Eosinophils # 0.0 (0-0.7) k/uL Basophils # 0.0 (0-0.2) k/uL PT 9.9 (9.0-12.0) sec INR 0.9 (<1.2) APTT 26.7 (22.0-30.0) sec D-Dimer 0.34 (<0.60) mg/L FEU Sodium (137-145) mmol/L Potassium (3.5-5.1) mmol/L Chloride (98-107) mmol/L Carbon Dioxide (22-30) mmol/L Anion Gap mmol/L BUN (7-17) mg/dL Creatinine (0.52-1.04) mg/dL Est GFR (CKD-EPI)AfAm (>60 ml/min/1.73 sqM) Est GFR (CKD-EPI)NonAf (>60 ml/min/1.73 sqM) Glucose (74-99) mg/dL Plasma Lactic Acid Bruno (0.7-2.0) mmol/L Calcium (8.4-10.2) mg/dL Magnesium (1.6-2.3) mg/dL Total Bilirubin (0.2-1.3) mg/dL AST (14-36) U/L ALT (4-34) U/L Alkaline Phosphatase (38-126) U/L Lactate Dehydrogenase (313-618) U/L C-Reactive Protein (<10.0) mg/L Total Protein (6.3-8.2) g/dL Albumin (3.5-5.0) g/dL Coronavirus (PCR) Detected A (Not Detectd) 01/20/21 01/20/21 Range/Units 16:38 16:38 WBC (3.8-10.6) k/uL RBC (3.80-5.40) m/uL Hgb (11.4-16.0) gm/dL Hct (34.0-46.0) % MCV (80.0-100.0) fL MCH (25.0-35.0) pg MCHC (31.0-37.0) g/dL RDW (11.5-15.5) % Plt Count (150-450) k/uL MPV Neutrophils % % Lymphocytes % % Monocytes % % Eosinophils % % Basophils % % Neutrophils # (1.3-7.7) k/uL Lymphocytes # (1.0-4.8) k/uL Monocytes # (0-1.0) k/uL Eosinophils # (0-0.7) k/uL Basophils # (0-0.2) k/uL PT (9.0-12.0) sec INR (<1.2) APTT (22.0-30.0) sec D-Dimer (<0.60) mg/L FEU Sodium 132 L (137-145) mmol/L Potassium 3.0 L (3.5-5.1) mmol/L Chloride 97 L (98-107) mmol/L Carbon Dioxide 26 (22-30) mmol/L Anion Gap 9 mmol/L BUN 11 (7-17) mg/dL Creatinine 0.67 (0.52-1.04) mg/dL Est GFR (CKD-EPI)AfAm >90 (>60 ml/min/1.73 sqM) Est GFR (CKD-EPI)NonAf 85 (>60 ml/min/1.73 sqM) Glucose 100 H (74-99) mg/dL Plasma Lactic Acid Bruno 1.2 (0.7-2.0) mmol/L Calcium 8.1 L (8.4-10.2) mg/dL Magnesium 1.9 (1.6-2.3) mg/dL Total Bilirubin 0.3 (0.2-1.3) mg/dL AST 81 H (14-36) U/L ALT 44 H (4-34) U/L Alkaline Phosphatase 52 (38-126) U/L Lactate Dehydrogenase 869 H (313-618) U/L C-Reactive Protein 76.1 H (<10.0) mg/L Total Protein 5.9 L (6.3-8.2) g/dL Albumin 3.5 (3.5-5.0) g/dL Coronavirus (PCR) (Not Detectd) - Radiology Data Radiology results: report reviewed (Chest x-ray: Bilateral infiltrates) Disposition Clinical Impression: Pneumonia due to COVID-19 virus, Hypokalemia Disposition: HOME SELF-CARE Condition: Stable Instructions (If sedation given, give patient instructions): Coronavirus Disease 2019 (COVID-19), Hypokalemia (ED) Additional Instructions: Return to the ER immediately should you develop increased shortness of breath, chest pain, feeling dizzy or faint, vomiting, or new or worsening symptoms. Follow up closely with your primary care provider. Prescriptions: Ondansetron Odt [Zofran Odt] 4 mg PO Q8HR PRN #10 tab PRN Reason: Nausea Is patient prescribed a controlled substance at d/c from ED?: No Referrals: Lou Turk MD [Primary Care Provider] - 1-2 days Time of Disposition: 21:37
[2021-01-20] MEDS ORDERED: SODIUM CHLORIDE 0.9% 500 ML 500 ML IV ONE (16:35)
[2021-01-20] MEDS ORDERED: ACETAMINOPHEN TAB 500 MG TAB PO STA (16:35)
[2021-01-20] MEDS ORDERED: ONDANSETRON 4 MG/2 ML VIAL IVP STA (16:35)
[2021-01-20 17:06] LABS: Basophils % (A) 0 %; Eosinophils % (A) 1 %; HCT 37.4 % (34.0-46.0); HGB 12.9 gm/dL (11.4-16.0); Lymphocytes # (A) 0.4 k/uL (1.0-4.8); Lymphocytes % (A) 20 %; MCHC 34.4 g/dL (31.0-37.0); MCV 87.3 fL (80.0-100.0); Mean Platelet Volume 7.4; Monocytes # (A) 0.1 k/uL (0-1.0); Monocytes % (A) 6 %; Neutrophils # (A) 1.5 k/uL (1.3-7.7); Neutrophils % (A) 71 %; Platelet Count 101 k/uL (150-450); RBC 4.28 m/uL (3.80-5.40); RDW 13.1 % (11.5-15.5); WBC 2.2 k/uL (3.8-10.6)
[2021-01-20 17:19] LABS: D-Dimer 0.34 mg/L FEU (<0.60); INR 0.9 (<1.2); Partial Thromboplastin Time 26.7 sec (22.0-30.0); Prothrombin Time 9.9 sec (9.0-12.0)
--- NOTE | 2021-01-20 17:25 | XR ---
EXAMINATION TYPE: XR chest 1V portable DATE OF EXAM: 01/20/2021 COMPARISON: NONE HISTORY: Fever and shortness of breath. TECHNIQUE: Single frontal view of the chest is obtained. FINDINGS: There is bilateral diffuse moderate patchy opacities. No pleural effusion, or pneumothorax seen. The cardiac silhouette size is mildly enlarged. The osseous structures are intact. IMPRESSION: Bilateral infiltrates.
[2021-01-20 18:00] LABS: ALT 44 U/L (4-34); AST 81 U/L (14-36); African American GFR (CKD) >90 (>60 ml/min/1.73 sqM); Albumin 3.5 g/dL (3.5-5.0); Alkaline Phosphatase 52 U/L (38-126); Anion Gap 9 mmol/L; Blood Urea Nitrogen 11 mg/dL (7-17); C Reactive Protein 76.1 mg/L (<10.0); Calcium 8.1 mg/dL (8.4-10.2); Carbon Dioxide 26 mmol/L (22-30); Chloride 97 mmol/L (98-107); Glucose 100 mg/dL (74-99); LDH 869 U/L (313-618); Magnesium 1.9 mg/dL (1.6-2.3); Non-African American GFR(CKD) 85 (>60 ml/min/1.73 sqM); Sodium 132 mmol/L (137-145); Total Bilirubin 0.3 mg/dL (0.2-1.3); Total Protein 5.9 g/dL (6.3-8.2)
[2021-01-20] MEDS ORDERED: POTASSIUM CHLORIDE ER 20 MEQ TAB.ER PO STA (18:20)
[2021-01-20] MEDS ORDERED: BAMLANIVIMAB (EUA) 700 MG, ETESEVIMAB (EUA) 1,400 MG in SODIUM CHLORIDE 0.9% 50 ML IVPB ONE (20:00)
[2021-01-20 21:54] VITALS: BP 129/73; PULSE 80; RESP 16; TEMP 98.9
[2021-01-20 22:50] LABS: Ferritin 1137.6 ng/mL (10.0-291.0)
== END 2021-01-20 21:50 | disposition home or self-care (01) ==
LOC: EC 16:15
DX: U07.1 COVID-19 (principal); J12.82 Pneumonia due to coronavirus disease 2019; J45.909 Unspecified asthma, uncomplicated; M19.90 Unspecified osteoarthritis, unspecified site; Z79.1 Long term (current) use of non-steroidal anti-inflammatories (NSAID); I10 Essential (primary) hypertension; Z79.899 Other long term (current) drug therapy
CPT/HCPCS: 36415; 93005; 85379; 80053; 82728; 83605; 83615; 83735; 85025; 85610; 85730; 86140; 84145; 87635; 71045; 99284; 96374; 96375; 96361; J2405; Q0245

== ENCOUNTER → 2021-06-21 | Outpatient (CLI) | payer MEDICARE ==
--- NOTE | 2021-06-24 10:29 | MM ---
Reason for exam: screening (asymptomatic). Last mammogram was performed 1 year and 2 months ago. History: Patient is postmenopausal and has history of other cancer at age 40. Family history of breast cancer in cousin. Benign stereotactic core biopsy of the left breast, February 26, 2004. Cyst aspiration of the right breast, November 09, 2002. Physical Findings: A clinical breast exam by your physician is recommended on an annual basis and results should be correlated with mammographic findings. MG 3D Screening Mammo W/Cad Bilateral CC and MLO view(s) were taken. Prior study comparison: April 24, 2020, bilateral MG 3d screening mammo w/cad. November 19, 2018, bilateral MG 3d screening mammo w/cad. The breast tissue is heterogeneously dense. This may lower the sensitivity of mammography. Previous mammotome biopsy in the left breast. No significant changes when compared with prior studies. ASSESSMENT: Benign, BI-RAD 2 RECOMMENDATION: Routine screening mammogram of both breasts in 1 year.
== END | disposition home or self-care (01) ==
LOC: RADMAMWWP 13:07
PROVIDERS: ATTEND Family Medicine
DX: Z12.31 Encounter for screening mammogram for malignant neoplasm of breast (principal); Z78.0 Asymptomatic menopausal state; Z80.3 Family history of malignant neoplasm of breast; Z85.9 Personal history of malignant neoplasm, unspecified
CPT/HCPCS: 77063; 77067

== ENCOUNTER → 2022-07-01 | Outpatient (CLI) | payer MEDICARE ==
--- NOTE | 2022-07-02 08:19 | MM ---
Reason for Exam: Screening (asymptomatic). Last screening mammogram was performed 12 month(s) ago. Patient History: Menarche at age 10. First Full-Term at age 19. Hysterectomy at age 45. Postmenopausal. Other cancer, age 40. 02/26/2004, Benign Stereotactic Core Biopsy on the left side. 11/09/2002, Cyst Aspiration on the Right side. Maternal cousin had breast cancer. Risk Values: Afua 5 year model risk: 1.8%. NCI Lifetime model risk: 3.0%. Prior Study Comparison: 11/19/2018 Bilateral Screening Mammogram, [facility]. 04/24/2020 Bilateral Screening Mammogram, [facility]. 06/21/2021 Bilateral Screening Mammogram, [facility]. Tissue Density: The breast tissue is heterogeneously dense. This may lower the sensitivity of mammography. Findings: Analyzed By CAD. There is no suspicious group of microcalcifications or new suspicious mass in either breast. Overall Assessment: Negative, BI-RAD 1 Management: Screening Mammogram of both breasts in 1 year. A clinical breast exam by your physician is recommended on an annual basis and results should be correlated with mammographic findings. Electronically signed and approved by: Al Noriega M.D. Radiologis
== END | disposition home or self-care (01) ==
LOC: RADMAMWWP 09:15
PROVIDERS: ATTEND Family Medicine
DX: Z12.31 Encounter for screening mammogram for malignant neoplasm of breast (principal); Z78.0 Asymptomatic menopausal state; Z80.3 Family history of malignant neoplasm of breast
CPT/HCPCS: 77063; 77067

== ENCOUNTER → 2023-08-04 | Outpatient (CLI) | payer MEDICARE ==
--- NOTE | 2023-08-05 15:42 | MM ---
Reason for Exam: Screening (asymptomatic). Last mammogram was performed 1 year(s) and 1 month(s) ago. Patient History: Menarche at age 10. First Full-Term at age 19. Hysterectomy at age 45. Postmenopausal. Patient has history of breast feeding. Other cancer, age 40. 02/26/2004, Benign Stereotactic Core Biopsy on the left side. 11/09/2002, Cyst Aspiration on the Right side. Paternal cousin had breast cancer. Risk Values: Afua 5 year model risk: 1.7%. NCI Lifetime model risk: 2.7%. Prior Study Comparison: 04/24/2020 Bilateral Screening Mammogram, [facility]. 06/21/2021 Bilateral Screening Mammogram, [facility]. 07/01/2022 Bilateral MG 3D screening mammo w/cad, [facility]. Tissue Density: There are scattered fibroglandular densities. Findings: Analyzed By CAD. Pattern appears symmetrical and stable. Core marker is within the left breast. No significant interval changes are evident No suspicious groups of microcalcifications, spiculated or lobular masses, architectural distortion or other secondary signs of malignancy are mammographically apparent. Overall Assessment: Benign, BI-RAD 2 Management: Screening Mammogram of both breasts in 1 year. A negative mammogram report should not preclude additional follow up of suspicious palpable abnormalities. Patient should continue monthly self breast exam. A clinical breast exam by your physician is recommended on an annual basis and results should be correlated with mammographic findings. Electronically signed and approved by: Baron Abel D.O. Radiologis
== END | disposition home or self-care (01) ==
LOC: RADMAMWWP 07:57
PROVIDERS: ATTEND Family Medicine
DX: Z12.31 Encounter for screening mammogram for malignant neoplasm of breast (principal); Z78.0 Asymptomatic menopausal state; Z80.3 Family history of malignant neoplasm of breast
CPT/HCPCS: 77063; 77067

== ENCOUNTER → 2024-01-04 | Outpatient (CLI) | payer MEDICARE ==
--- NOTE | 2024-01-08 13:21 | BD ---
EXAMINATION TYPE: Axial Bone Density DATE OF EXAM: 01/04/2024 CLINICAL HISTORY: 78 years old Female. 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 Type 1 Diabetes: no 2. Hyperthyroidism: no 3. Menopause before 45: no 4. Malnutrition: no 5. Chronic liver disease: no Rheumatoid Arthritis: no Current Tobacco Use: no RISK FACTORS HISTORY OF: Hip Fracture (Right/Left): no Spine Fracture: no History of Wrist Fracture: no Surgery to Spine/Hip(right/left)/Wrist (right/left): Laminectomy [id number] When: MEDICATIONS: Thyroid Medications: no Osteoporosis Medications: no EXAM MEASUREMENTS: Bone mineral densitometry was performed using the [employer] System. Bone mineral density about the R hip (g/cm2): 0.894 Bone mineral density about the L hip (g/cm2): 0.926 T Score values are as follows: -----R Neck: -1.3 -----L Neck: -1.9 -----R Total: -0.9 -----L Total: -0.6 Z Score values are as follows: -----R Neck: 0.8 -----L Neck: 0.1 -----R Total: 1.0 -----L Total: 1.2 Bone mineral density has: decreased -3.2 % since study of: 04/24/2020 FRAX%s: The graph provided illustrates a 14.9 % chance for a major osteoporotic fx and a 4.2% chance for the hips probability for fx in 10 years time. IMPRESSION: Osteopenia (T Score between -2.5 and -1). There is slightly increased risk of fracture and the patient may be considered for treatment. Re-Screen 2-5 years. NOTE: T-SCORE=SD OF THE YOUNG ADULT MEAN.
== END | disposition home or self-care (01) ==
LOC: RADBDWWP 14:42
PROVIDERS: ATTEND Family Medicine
DX: M85.89 Other specified disorders of bone density and structure, multiple sites (principal)
CPT/HCPCS: 77080

== ENCOUNTER → 2024-11-15 | Outpatient (CLI) | payer MEDICARE ==
--- NOTE | 2024-11-15 11:02 | US ---
EXAMINATION TYPE: US thyroid st tissue head/neck DATE OF EXAM: 11/15/2024 COMPARISON: NONE CLINICAL INDICATION: Female, 79 years old with history of L04.9 ACUTE LYMPHADENITIS, UNSPECIFIED; Dx nonhodgkins lymphoma x 9 years ago. Patient states doctor felt lymph nodes. TECHNIQUE: Sonographic images taken of bilateral neck. FINDINGS: Bilateral neck seen. Prominent lymph nodes seen right neck with largest measured: Short a xis = 0.7 cm and cortical thickness = 5.1 mm. No prominent lymph nodes seen left neck. Follow-up soft tissue CT neck can be performed as clinically indicated. IMPRESSION: 1. Couple of small lymph nodes within the right neck at the palpable region [facility], , 11/15/2024 11:00 AM
== END | disposition home or self-care (01) ==
LOC: RADUSWWP 10:19
PROVIDERS: ATTEND Family Medicine
DX: L04.9 Acute lymphadenitis, unspecified (principal); Z85.72 Personal history of non-Hodgkin lymphomas
CPT/HCPCS: 76536

== ENCOUNTER → 2025-01-18 | Outpatient (CLI) | payer MEDICARE ==
--- NOTE | 2025-01-18 13:01 | MM ---
Reason for Exam: Screening (asymptomatic). Last mammogram was performed 1 year(s) and 6 month(s) ago. Patient History: Menarche at age 10. First Full-Term at age 19. Hysterectomy at age 45. Postmenopausal. Patient has history of breast feeding. Other cancer, age 40. 02/26/2004, Benign Stereotactic Core Biopsy on the left side. 11/09/2002, Cyst Aspiration on the Right side. Paternal cousin had breast cancer. Risk Values: Afua 5 year model risk: 1.7%. NCI Lifetime model risk: 2.5%. Prior Study Comparison: 06/21/2021 Bilateral Screening Mammogram, [facility]. 07/01/2022 Bilateral MG 3D screening mammo w/cad, [facility]. 08/04/2023 Bilateral MG 3D screening mammo w/cad, [facility]. Tissue Density: The breasts are heterogeneously dense, which may obscure small masses. Findings: Analyzed By CAD. Microclip left breast from prior biopsy. A few regional punctate calcifications are unchanged. There is no suspicious group of microcalcifications or new suspicious mass in either breast. Overall Assessment: Benign, BI-RAD 2 Management: Screening Mammogram of both breasts in 1 year. Patient should continue monthly self-breast exams. A clinical breast exam by your physician is recommended on an annual basis. This exam should not preclude additional follow-up of suspicious palpable abnormalities. Note on Afua scores and lifetime risk: 1. A Afua score greater than 3% is considered moderate risk. If this is the case, consider specialist referral to assess eligibility for a risk reducing agent. 2. If overall lifetime risk for the development of breast cancer is 20% or higher, the patient may qualify for future screening with alternating mammogram and breast MRI. [facility], , 01/18/2025 12:58 PM. Electronically signed and approved by: Jazmine Trujillo M.D. Radiologist
== END | disposition home or self-care (01) ==
LOC: RADMAMWWP 09:14
PROVIDERS: ATTEND Family Medicine
DX: Z12.31 Encounter for screening mammogram for malignant neoplasm of breast (principal); R92.333 Mammographic heterogeneous density, bilateral breasts; Z78.0 Asymptomatic menopausal state; Z80.3 Family history of malignant neoplasm of breast
CPT/HCPCS: 77063; 77067